=== PATIENT | female | born 1975 | race Caucasian/White ===

== ENCOUNTER 2021-11-29 16:23 | Emergency (ER) | payer OTHER ==
[2021-11-29] MEDS ORDERED: SERTRALINE HCL100 MG PO (17:17)
[2021-11-29 17:36] LABS: BASOPHIL 0.4 % (0-2); HCT 37.4 % (37.0-47.0); LYMPHOCYTE 21.7 % (15-48); MCHC 32.1 g/dL (32.0-36.0); MCV 87.2 fL (78.0-100.0); MPV 9.4 fL (6.0-9.5); NEUTROPHIL 68.6 % (41-80); NRBC 0; PLT 344 K/uL (150-400); RBC 4.29 M/uL (4.20-5.40); RDW 13.5 % (11.5-14.0); WBC 9.1 K/uL (4.0-10.5)
[2021-11-29 17:43] LABS: BILIRUBIN 1+ mg/dL (NEGATIVE); BLOOD 3+ Ery/uL (NEGATIVE); CLARITY CLEAR (CLEAR); COLOR YELLOW (YELLOW); GLUCOSE (U) NORMAL (NORMAL); LEUKOCYTES NEGATIVE Leu/uL (NEGATIVE); NITRITE NEGATIVE (NEGATIVE); PROTEIN 2+ mg/dL (NEGATIVE); SPECIFIC GRAVITY >=1.030 (1.001-1.030); UROBILINOGEN 0.2 mg/dL (0.2-1.0)
[2021-11-29 17:51] LABS: BACTERIA 2+; URINARY RBC TNTC
[2021-11-29 17:52] LABS: CREATININE 0.83 mg/dL (0.51-0.95); POTASSIUM 3.3 mmol/L (3.5-5.1)
[2021-11-29] MEDS ORDERED: FLOMAX 0.4 MG0.4 MG PO (19:39)
[2021-11-29] MEDS ORDERED: BACTRIM DS TAB1 EACH PO (19:39)
[2021-11-29] MEDS ORDERED: NORCO 5-325 TA1 EACH PO (19:39)
[2021-11-29] MEDS ORDERED: ONDANSETRON HCL4 MG PO (19:39)
== END 2021-11-29 20:12 | disposition home or self-care (01) ==
LOC: FER 16:23
PROVIDERS: Nurse Practitioner Family
DX: N39.0 Urinary tract infection, site not specified (principal); N83.202 Unspecified ovarian cyst, left side; N20.2 Calculus of kidney with calculus of ureter; R10.84 Generalized abdominal pain
CPT/HCPCS: 36415; 80048; 81001; 85025; 87088; J1885; J2405; J7030; Q9967